=== PATIENT | female | born 1975 | race Caucasian/White ===

== ENCOUNTER → 2016-04-26 | Outpatient (CLI) | payer OTHER ==
[~2016-04-26] MED LIST: ADVIL100 MG PO; MULTI VITAMIN1 EACH PO
--- NOTE | ~2016-04-26 | US200 ---
[facility] A Service of [facility] RADIOLOGY TEXT RESULTS PATIENT: RUSTY DELANEY LOCATION: [facility] : 71 UNIT #: [id number] AGE: [address]: Paige Pierce APRN SEX: F ORDER DR: [id number] [facility] [address]. [place], [place] [address] [id number] O MR#: [id number] Acc #: [id number] NAME: RUSTY DELANEY : 1975 SEX: F STUDY DATE/TIME: 04/26/2016 13:37 UNIT: [facility] ROOM: STUDY DESCRIPTION: US Breast Guided Bx 1st Lesion Attending Physician: Paige Pierce A.P.R.N. Ordering Physician: Paige Pierce A.P.R.N. Primary Care Physician: Paige Pierce A.P.R.N. MEDICAL IMAGING REPORT This report is preliminary unless electronic signature is present REVISED REPORT SEE ADDENDUM EXAM Ultrasound-guided core biopsy of 2 breast lesions, 04/26/2016 and ultrasound-guided clip placement procedure for 2 breast lesions. INDICATIONS 40-year-old female who underwent additional views of the right breast and focused ultrasound of the right breast 04/20/2016 demonstrating indeterminate lesions in the right breast at 3 o'clock and 9 o'clock. Ultrasound-guided core biopsy has been requested for further assessment. PROCEDURE The patient's prior imaging studies and reports were reviewed. She was deemed an adequate candidate for the procedure. Prior to the procedure, discussion of procedure and risks occurred with the patient. Risks included but were not limited to bleeding, infection and damage to adjacent structures. Patient gave both oral and written consent to proceed and the consent form was signed and on the chart prior to the procedure. Prior to the procedure, a "time-out" protocol was also followed to confirm patient identity and procedure details. The right breast was prepped and draped in the usual sterile fashion. Maximum sterile-barrier technique appropriate for procedure guidelines was utilized. This includes the use of sterile gloves, sterile barrier, and sterile instruments. Initially, attention was turned to the 3 o'clock lesion. It was adequately visualized to proceed. Local incision was achieved with about 4 mL of a buffered 1% lidocaine solution. Thereafter, a small dermatotome was performed. A 14-gauge core biopsy device was advanced to the margin of the nodule. Appropriate needle location was documented with ultrasound throughout and images demonstrating appropriate needle placement were saved to the PACS system. 3 separate passes through [facility] A Service of [facility] RADIOLOGY TEXT RESULTS PATIENT: RUSTY DELANEY LOCATION: [facility] : 71 UNIT #: [id number] AGE: [address]: Paige Pierce APRN SEX: F ORDER DR: the nodule at the 3 o'clock position were performed. 3 specimens were obtained and placed in formalin solution. Thereafter, using the same skin entrance site, a metallic biopsy clip introducer was advanced to the margin of the nodule. Appropriate needle location was documented with ultrasound and images saved to the PACS system. The clip was deployed within the nodule and seen to be in good position on ultrasound. Next, attention was turned to the tiny nodule in the periareolar 9 o'clock position right breast. It was adequately visualized to proceed. Given its close proximity to the nipple areolar complex and superficial nature, tissue sampling of this nodule was technically challenging and this was the best sampling possible. Local anesthesia was achieved with about 4 cc of buffered 1% lidocaine solution. Thereafter, a small dermatotome was performed. Subsequently, a second new 14-gauge core biopsy device was advanced to the margin of the nodule. Appropriate location was documented with ultrasound throughout and images demonstrating appropriate place were saved to the PACS system. 1 pass was performed and the nodule was skewered. A second pass was performed also appearing to partially skewer the nodule. Due to proximity to the nipple areolar complex and pain symptoms associated with sampling of this tiny nodule, no further passes could be tolerated were performed. The 2 specimens obtained were placed in a formalin solution. Thereafter using the same skin entrance site, a biopsy clip introducer was advanced to the margin of the nodule. Appropriate needle location was documented with ultrasound. The clip was deployed immediately adjacent to the nodule, due to difficulty, traversing the nodule with the clip due to patient pain symptoms and tolerance level. The clip was seen to be in good position just medial to the nodule under ultrasound. At this point, a post-procedure mammogram was obtained that demonstrated appropriate of clip placement at the 3 o'clock and 9 o'clock positions in the right breast. At this point, the procedure was concluded. No immediate post-procedure complications were encountered. Appropriate aftercare instructions have been provided to the patient. Please see the final pathology report for further details. IMPRESSION 1. Successful ultrasound-guided core biopsy of an indeterminate nodule in the 3 o'clock position right breast. Pathology results pending. Please see the final pathology report for details. 2. Successful ultrasound-guided clip deployment with respect to the nodule at 3 o'clock confirmed with ultrasound and mammographically on a post-procedure clip placement mammogram. 3. Tissue sampling of an indeterminate [id number]-mm nodule in the periareolar 9 o'clock position of the right breast. 2 biopsy passes were performed and 2 specimens obtained. No further passes could be tolerated by the patient. The biopsy device traversed the nodule on the first pass and partially traversed the nodule on the second pass. Regardless of pathology results, this lesion will STS. [facility] A Service of [facility] RADIOLOGY TEXT RESULTS PATIENT: RUSTY DELANEY LOCATION: [facility] : 71 UNIT #: [id number] AGE: [address]: Paige Pierce APRN SEX: F ORDER DR: require 6-month follow-up imaging with ultrasound to document stability. If pathology results are inconclusive, demonstrate malignancy or atypical features or papilloma features, then surgical consultation and resection of the nodule would be recommended. Please refer to the final pathology report for further details. 4. Successful ultrasound-guided clip deployment immediately adjacent to the periareolar nodule 9 o'clock. This was also confirmed with ultrasound and a clip placement mammogram. BIRADS: 4 Suspicious abnormality; biopsy should be considered. Patients over the age of 40 are entered into a reminder system with target due date for the next mammogram. A result letter will also be sent to the patient. Dictated by... Gaetano Taylor M.D. THIS IS AN ELECTRONICALLY VERIFIED REPORT Gaetano Taylor M.D. at 04/27/2016 7:19 AM Jamar TD: 04/26/2016 20:02 JOB #: [id number] EXAM Pathology addendum to ultrasound-guided core biopsy performed 04/26/2016 ADDENDUM Pathology results for the nodule in the 3 o'clock position right breast are negative for malignancy but demonstrate focal microcalcifications and breast parenchyma with fibroadenomatous change and focal apocrine metaplasia. There is also columnar cell change and very focal atypical ductal hyperplasia. Although no malignancy is present, the presence of atypical ductal hyperplasia warrants surgical referral for surgical excision. Biopsy results for the 9 o'clock position nodule in the periareolar right breast demonstrate fragments of benign breast parenchyma and no microcalcifications or malignancy was identified. As described in the biopsy report, at least 6-month followup imaging of the nodule in the periareolar 9 o'clock position is recommended. Consideration of surgical excision also recommended as the nodule in the periareolar 9 o'clock [facility] Service of [facility] RADIOLOGY TEXT RESULTS PATIENT: RUSTY DELANEY LOCATION: [facility] : 71 UNIT #: [id number] AGE: [address]: Paige Pierce APRN SEX: F ORDER DR: saravanan right breast could not be sampled in the typical fashion given its proximity to the nipple areolar complex and the possibility of an intraductal papilloma is raised, which would be best managed by surgical excision if followup imaging with ultrasound is deferred. Imaging findings are concordant with pathology results. Dictated by... Gaetano Taylor M.D. THIS IS AN ELECTRONICALLY VERIFIED REPORT Gaetano Taylor M.D. at 05/01/2016 7:57 AM Anyi TD: 04/28/2016 12:50 JOB #: [id number] CC: Sovera/invision Please Delete MEDICAL IMAGING REPORT COPY
--- NOTE | ~2016-04-26 | MY14 ---
[facility] A Service of [facility] RADIOLOGY TEXT RESULTS PATIENT: RUSTY DELANEY LOCATION: [facility] : 71 UNIT #: [id number] AGE: [address]: Paige Pierce APRN SEX: F ORDER DR: [id number] [facility] [address]. [place], [place] [address] [id number] O MR#: [id number] Acc #: [id number] NAME: RUSTY DEALNEY : 1975 SEX: F STUDY DATE/TIME: 04/26/2016 14:49 UNIT: [facility] ROOM: STUDY DESCRIPTION: MY Post Bx Film Attending Physician: Paige Pierce A.P.R.N. Ordering Physician: Paige Pierce A.P.R.N. Primary Care Physician: Paige Pierce A.P.R.N. MEDICAL IMAGING REPORT This report is preliminary unless electronic signature is present EXAM Clip placement mammogram, 04/26/2016 INDICATIONS Status post ultrasound-guided core biopsy of a nodule at 3 o'clock in the right breast and a second periareolar nodule measuring less than 5 mm at the 9 o'clock position. CC and true lateral views of the right breast were obtained and reviewed with an FDA approved CAD device. COMPARISON 04/17/2016 FINDINGS There is a clip present at the 3 o'clock aspect of the right breast. There is a second clip in the periareolar 9 o'clock position right breast. This confirms appropriate sampling of the nodule at 3 o'clock and of the periareolar 9 o'clock lesion. Neither of the lesions were identified mammographically and were only seen with ultrasound. Please see the separately dictated ultrasound-guided core biopsy report for further details. IMPRESSION Clip placement mammogram demonstrates appropriate clip placement at the 2 tissue sampling sites as described. Please see the separately dictated ultrasound-guided core biopsy report for further details. BIRADS: 4 - Suspicious abnormality - Biopsy should be considered Dictated by... Gaetano Taylor M.D. [facility] A Service of [facility] RADIOLOGY TEXT RESULTS PATIENT: RUSTY DELANEY [id number] [birth year] UNIT #: [id number] AGE: [address]: Paige Pierce APRN SEX: F ORDER DR: THIS IS AN ELECTRONICALLY VERIFIED REPORT Gaetano Taylor M.D. at 04/26/2016 4:53 PM Nilay TD: 04/26/2016 16:37 JOB #: [id number] MEDICAL IMAGING REPORT COPY
== END | disposition home or self-care (01) ==
LOC: CWCC 13:02
DX: N63 Unspecified lump in breast (principal); N60.81 Other benign mammary dysplasias of right breast
CPT/HCPCS: 88305; G0204

== ENCOUNTER → 2016-06-28 | Day surgery (SDC) | payer OTHER ==
--- NOTE | ~2016-06-28 | MY20 ---
[facility] A Service of [facility] RADIOLOGY TEXT RESULTS PATIENT: RUSTY DELANEY LOCATION: [facility] : 71 UNIT #: [id number] AGE: [address]: Leo Garces MD SEX: F ORDER DR: [id number] [facility]. [place], [place] [address] [id number] O MR#: [id number] Acc #: [id number] NAME: RUSTY DELANEY : 1975 SEX: F STUDY DATE/TIME: 06/28/2016 8:24 UNIT: [facility] ROOM: STUDY DESCRIPTION: MY Breast Ndl Loc 1st Attending Physician: Leo Garces M.D. Referring Physician: Leo Garces M.D. Ordering Physician: Leo Garces M.D. Primary Care Physician: Paige Pierce A.P.R.N. MEDICAL IMAGING REPORT This report is preliminary unless electronic signature is present EXAM Mammographically-guided needle localization procedure of 2 lesions that have been previously biopsied in the right breast on 06/28/2016 INDICATION 41-year-old female with prior biopsies in the right breast demonstrating atypical ductal hyperplasia for a lesion at 3 o'clock. Needle localization for a periareolar nodule in 9 o'clock was also requested due to difficulty sampling the nodule with ultrasound-guided core biopsy technique. Clips were placed at both sites in connection with the prior biopsies. FINDINGS The patient's prior imaging studies were reviewed. She was deemed an adequate candidate for the procedure. Images here in the department confirm the presence of a previously placed biopsy clips in the periareolar 9 o'clock and middle third depth 3 o'clock positions of the right breast. They were adequate visualized to proceed. The procedure and risks were explained to the patient and included but not limited to bleeding, infection, and damage to adjacent structures. The patient gave both oral and written consent to proceed and the consent form was signed on the chart prior to procedure. Prior to the procedure a "time-out" protocol was also performed to confirm patient identity and procedure details. Initially, the periareolar 9 o'clock lesion was chosen for localization. The right breast was prepped and draped in usual sterile fashion. Maximum sterile-barrier technique appropriate for procedure guidelines was utilized including sterile gloves, sterile instruments, and sterile barrier years. Local anesthesia was achieved with about 2 mL of buffered 1% lidocaine solution. Using a lateral approach, a 3 cm Neopit needle/wire system was used to localize the biopsy clip. Appropriate location was [facility] A Service of [facility] RADIOLOGY TEXT RESULTS PATIENT: RUSTY DELANEY LOCATION: [facility] : 71 UNIT #: [id number] AGE: [address]: Leo Garces MD SEX: F ORDER DR: documented with mammography throughout and images demonstrating appropriate needle placement were saved to the PACS system. The needle and wire were seen to be less than 5 mm from the clip in both projections and at this point, the wire was deployed and the needle removed leaving the wire in place. The wire was seen to be in good position less than 5 mm from the clip in both projections. Attention was then turned to the 3 o'clock area. Using a medial approach, the medial hemisphere right breast was prepped and draped in usual sterile fashion. Maximum sterile-barrier technique appropriate for procedure guidelines was utilized. This included the use of sterile gloves, sterile instruments, and sterile barrier. Local anesthesia was achieved with about 3 mL of a buffered 1% lidocaine solution. Thereafter, using mammographic guidance, a 5 cm Neopit needle/wire system was used to localize the clip. Appropriate needle location was documented with mammography throughout and images demonstrating appropriate placement were saved to the PACS system. The needle and wire were seen to be less than 5 mm from the clip in both projections. The needle and wire were both left in place at the conclusion of the procedure at the requested of the ordering surgeon. At this point, the procedure was concluded. Appropriate notes were left in the patient's chart. Appropriate images were printed for intraoperative views. Images are also made available on the PACS system for intraoperative views. Subsequent specimen radiographs were obtained. The first specimen from the 3 o'clock position demonstrates the presence of the previously placed biopsy clip and localization wire in the specimen. The second specimen from the periareolar 9 o'clock position also demonstrates the presence of the previously placed clip and needle localization wire. Results regarding the surgical specimens were called directly to the operating room of the surgeon, Dr. Garces, at the time of specimen receipt, approximately 1145 and 2000 hours 06/28/2016. Please see the final pathology reports for further details. IMPRESSION 1. Successful mammographically-guided needle localization procedure for a periareolar mass in the 9 o'clock position right breast that has been previously sampled. No immediate post procedure complications. 2. Successful mammographically-guided needle localization procedure for a previously biopsied nodule in the 3 o'clock position right breast. No immediate post procedure complications. 3. Specimen radiographs demonstrate appropriate excision of the areas as described. Pathology results are pending. Please see the final pathology report for further details. BIRADS: 4 Suspicious abnormality; biopsy should be considered. [facility] A Service of [facility] RADIOLOGY TEXT RESULTS PATIENT: RUST[facility] DELANEY [id number] [birth year] UNIT #: [id number] AGE: [address]: Leo Garces MD SEX: F ORDER DR: Dictated by... Gaetano Taylor M.D. THIS IS AN ELECTRONICALLY VERIFIED REPORT Gaetano Taylor M.D. at 06/29/2016 5:36 PM ALIX/umair TD: 06/28/2016 15:52 JOB #: [id number] MEDICAL IMAGING REPORT Page 1 of 1 COPY
--- NOTE | ~2016-06-28 | MY13 ---
[facility] A Service [facility] RADIOLOGY TEXT RESULTS PATIENT: RUSTY DELANEY LOCATION: [facility] : 71 UNIT #: [id number] AGE: [address]: Leo Garces MD SEX: F ORDER DR: [id number] [facility]. [place], [place] [address] [id number] O MR#: [id number] Acc #: [id number] NAME: RUSTY DELANEY : 1975 SEX: F STUDY DATE/TIME: 06/28/2016 11:43 UNIT: [facility] ROOM: STUDY DESCRIPTION: MY Surgical Specimen Attending Physician: Leo Garces M.D. Referring Physician: Leo Garces M.D. Ordering Physician: Leo Garces M.D. Primary Care Physician: Paige Pierce A.P.R.N. MEDICAL IMAGING REPORT This report is preliminary unless electronic signature is present EXAM Specimen radiograph from a needle localization procedure 06/28/2016 INDICATIONS Needle localization of a previously placed biopsy clip in the 9 o'clock position periareolar right breast. Single specimen radiograph was performed. COMPARISON Needle localization procedure same date FINDINGS The specimen radiograph demonstrates the presence of the previously placed biopsy clip in the periareolar 9 o'clock position as well as the localization wire. Findings were called to Dr. Garces in the operative suite at the time of specimen receipt approximately 11:45 hours 06/28/2016. Pathology results are pending. Please see the final pathology report for further details. IMPRESSION Specimen radiograph demonstrates the presence of the previously placed biopsy clip from the 9 o'clock periareolar right breast as well also localization wire within the specimen. Findings called to Dr. Garecs as described above. Pathology results pending. See that report for further details. BIRADS: 4 - Suspicious abnormality - Biopsy should be considered Dictated by... Gaetano Taylor M.D. THIS IS AN ELECTRONICALLY VERIFIED REPORT [facility] A Service of [facility] RADIOLOGY TEXT RESULTS PATIENT: RUSTY DELANEY LOCATION: [facility] #: [id number] : [birth year] UNIT #: [id number] AGE: [address]: Leo Garces MD SEX: F ORDER DR: Gaetano Taylor M.D. at 06/29/2016 5:34 PM Nilay TD: 06/28/2016 15:51 JOB #: [id number] MEDICAL IMAGING REPORT Page 1 of 1 COPY
--- NOTE | ~2016-06-28 | OR ---
Unit #: [id number] #: [id number] Patient: RUSTY DELANEY [id number] [place], [place] [address] [id number] O MR#: [id number] NAME: RUSTY DELANEY ROOM: Date of Procedure: 06/28/2016 Admission Date: 06/28/2016 Surgeon: Leo Garces M.D. : 1975 Attending Physician: Leo Garces M.D. Referring Physician: Leo Garces M.D. Primary Care Physician: Paige Pierce A.P.R.N. PROCEDURE OPERATIVE NOTE PREOPERATIVE DIAGNOSES 1. Atypical ductal hyperplasia right breast three o'clock position. 2. Mammographic abnormality nine o'clock position right breast. SURGEON Leo Garces M.D. ANESTHESIA General LMA anesthesia with 0.5% Marcaine plain local anesthesia. PROCEDURE PERFORMED 1. Mammographic needle localization excisional biopsy right breast three o'clock position. 2. Mammographic needle localization excisional biopsy right breast nine o'clock position. FINDINGS Each area was present within the specimen radiograph. SPECIMEN Sent to Pathology. COMPLICATIONS None apparent. CONDITION The patient tolerated the procedure well. INDICATIONS The patient is a 41-year-old white female who on recent mammography was found to have an abnormality preset at the three o'clock position and nine o'clock position. Biopsy of the three o'clock position returned as atypical ductal hyperplasia. Biopsy of the nine o'clock position showed normal breast parenchyma but was felt to not be concordant with the imaging. She presents at this time for needle localization excisional biopsies of these areas. OPERATION After obtaining informed consent as well as receiving preoperative antibiotics the patient, who had undergone needle localization earlier in the day, presented to the operating room and, after adequate general LMA anesthesia was obtained, had her right breast prepped and draped in a Unit #: [id number] #: [id number] Patient: RUSTY DELANEY sterile fashion. A transverse incision was made just medial to the nipple nipple-areolar complex on the right breast and it was taken down through the skin with a knife and the subdermal tissues and subcutaneous tissues with the electrocautery. The wire was found and the area round the hook of the wire was grasped with an Allis clamp. It was excised circumferentially with good hemostasis and sent to mammography where the clip, wire and lesion were present on specimen radiograph. The wound was irrigated and hemostasis obtained with the Bovie, infiltrated with 0.5% Marcaine plain local anesthesia. The dermal and subcutaneous tissues were reapproximated with interrupted 3-0 Vicryl suture and the skin was closed with a 4-0 Vicryl subcuticular stitch. New instruments were then brought up and an incision was made at the edge of the inferior aspect of the areola with the knife. It was taken down through the subdermal tissues and subcutaneous tissues with the electrocautery. The wire was found and the area round the hook of the wire was grasped with an Allis clamp and was excised circumferentially with the electrocautery with good hemostasis. It was sent to mammography where the wire, clip and lesion were all present within the specimen on specimen radiograph. The wound was irrigated and hemostasis obtained with the Bovie, infiltrated with 0.5% Marcaine plain local anesthesia. The subdermal tissue was reapproximated with interrupted 3-0 Vicryl suture and the skin was closed with a 4-0 Vicryl subcuticular stitch. Benzoin and Steri-Strips were applied over the wound in an occlusive manner followed by a dry dressing and a Tegaderm dressing. Needle count, sponge count and instrument count were all correct as reported by the scrub nurse x2. The patient went from the operating room to the recovery room in stable condition. Dictated by... Prashanth Barrett/jeyson TD: 06/28/2016 22:57 JOB #: [id number] PROCEDURE OPERATIVE NOTE Page 1 of 1 X Leo Garces MD X PROCEDURE OPERATIVE NOTE
--- NOTE | ~2016-06-28 | MY13 ---
[facility] A Service of [facility] & [facility] RADIOLOGY TEXT RESULTS PATIENT: RUSTY DELANEY LOCATION: [facility] : 71 UNIT #: [id number] AGE: [address]: Leo Garces MD SEX: F ORDER DR: [id number] [facility] [address] [place], [place] [address] [id number] O MR#: [id number] Acc #: [id number] NAME: RUSTY DELANEY : 1975 SEX: F STUDY DATE/TIME: 06/28/2016 11:26 UNIT: [facility] ROOM: STUDY DESCRIPTION: MY Surgical Specimen Attending Physician: Leo Garces M.D. Referring Physician: Leo Garces M.D. Ordering Physician: Leo Garces M.D. Primary Care Physician: Paige Pierce A.P.R.N. MEDICAL IMAGING REPORT This report is preliminary unless electronic signature is present EXAM Specimen radiograph 06/28/2016 INDICATION Status post mammographically-guided needle localization procedure same date. TECHNIQUE Single specimen radiograph from the right breast was performed. Correlation is made with needle localization procedure same date. FINDINGS The specimen radiograph demonstrates the presence of the previously placed biopsy clip and localization wire from the 3 o'clock position of the right breast within the specimen. Findings were called to Dr. Garces in the operative suite at the time the specimen receipt approximately 1145 hours 06/28/2016. Pathology results are pending. Please see the final pathology report for further details. IMPRESSION 1. Specimen radiograph demonstrates the presence of the previously placed biopsy clip and localization wire within the specimen. Findings called to Dr. Garces in the operative suite at the time of the specimen receipt as described above. Pathology results are pending. Please see the final pathology report for further details. BIRADS: 4 Suspicious abnormality; biopsy should be considered. STAT * RESULT Dictated by... Gaetano Taylor M.D. [facility] A Service of [facility] & [facility] RADIOLOGY TEXT RESULTS PATIENT: RUSTY DELANEY LOCATION: [facility] : 71 UNIT #: [id number] AGE: [address]: Leo Garces MD SEX: F ORDER DR: THIS IS AN ELECTRONICALLY VERIFIED REPORT Gaetano Taylor M.D. at 06/29/2016 5:39 PM Zoran TD: 06/28/2016 14:59 JOB #: [id number] MEDICAL IMAGING REPORT Page 1 of 1 COPY
== END | disposition home or self-care (01) ==
LOC: CSUR 07:05
DX: D24.1 Benign neoplasm of right breast (principal); N60.21 Fibroadenosis of right breast; N60.91 Unspecified benign mammary dysplasia of right breast; N60.81 Other benign mammary dysplasias of right breast; N60.31 Fibrosclerosis of right breast; R92.0 Mammographic microcalcification found on diagnostic imaging of breast; F17.210 Nicotine dependence, cigarettes, uncomplicated; Z79.899 Other long term (current) drug therapy; Z90.89 Acquired absence of other organs
CPT/HCPCS: 76098; 88305; 88307; J0690; J1100; J1885; J2405; J3010